=== PATIENT | male | born 1995 | race Two or more races ===

== ENCOUNTER 2021-07-09 00:21 | Emergency (ER) | payer BC ==
[~2021-07-09] VITALS: Ht 177.8 cm; Wt 89.5 kg
[2021-07-09] MEDS ORDERED: DOXY100C3 PO (01:12)
--- NOTE | 2021-07-09 01:12 | PHYS DOC ---
Past Medical History Past Medical History: No Pertinent History Past Surgical History: No Surgical History General Adult EDM: Chief Complaint: EARACHE/EAR PAIN HPI: HPI: 26-year-old male presents to the emergency department complaining of ear pain on the outside of both ears along with crusting and redness. He has used earplugs and earrings in the past. He notes some pus on the outside of his ear. He complains of some slight hearing difficulty on the right side but not the left side. The patient denies nausea, vomiting, fever, chills, chest pain, shortness of breath, abdominal pain, urinary symptoms, cough, recent trauma, or any other complaints. He notes that his symptoms of increased while he is wearing mask with ear loops Review of Systems: Review of Systems: ROS is otherwise negative except for what was mentioned in the HPI Heart Score: C/O Chest Pain: No Allergies: Allergies: Allergies Coded Allergies Type Severity Reaction Last Updated Verified No Known Drug Allergies 07/09/21 No Physical Exam: PE: General: No acute distress. HEENT: Bilateral tympanic membranes are within normal limits, external ear canals are within normal limits, on the auricle of the ear there is crusting and redness that appears chronic Neck: Supple, Full range of motion without tenderness. Respiratory: Airway intact, normal phonation, vocalizing. No signs of accessory muscle use or respiratory distress. Cardiovascular: Normal rate, Extremities appear well perfused. Musculoskeletal: Normal range of motion. No deformity. Ambulatory. Integumentary: No pallor, No jaundice. Neurologic: Alert, Oriented. Moves all extremities independently. Psychiatric: Cooperative Current Patient Data: Vital Signs: Vital Signs Date Time Temp Pulse Resp B/P (MAP) Pulse Ox O2 Delivery O2 Flow Rate FiO2 07/09/21 01:54 84 20 118/62 (80) 98 Room Air 07/09/21 01:24 76 20 133/61 (85) 97 Room Air 07/09/21 00:54 86 20 143/83 (103) 98 Room Air 07/09/21 00:45 98.8 82 20 146/87 (106) 98 Room Air 98.8 Course & Med Decision Making: Course & Med Decision Making Will prescribe doxycycline for superficial skin infection over the ear, there are no internal ear findings patient otherwise appears well. Departure Departure Impression: Primary Impression: Acute infection of both pinnae Disposition: 01 HOME / SELF CARE / HOMELESS Condition: STABLE Referrals: NON,STAFF (PCP) Patient Instructions: Cellulitis, [id number] Additional Instructions: You were seen for a skin infection called cellulitis. You should abhinav the area of redness when you get home. If your redness spreads past the marked area at 24 hours you should have it evaluated again. You do not have a focused area of infection called an abscess right now, but you could develop one. If so you will need to have it drained. You should return to the ED immediately if you develop worsening pain, fever, swelling, redness, drainage, any sign of abscess, or any other new or concerning symptoms. Take the entire course of antibiotics as prescribed. You have been given a prescription for doxycycline. This medicine is an antibiotic for cellulitis. Please take as prescribed for the full course of the prescription. Do not stop taking the medicine early if you feel better, as this could risk building antibiotic resistance and may put you at risk for a more harmful infection later. The most common side effect of antibiotics include nausea, vomiting, diarrhea and rash. Please come to be evaluated if you develop any symptoms that are concerning to you. One major adverse effect of antibiotics is the development of a diarrheal illness called c. diff colitis, if you develop an excessive amount of diarrhea or are concerned about this please return to the ER or consult a physician. Scripts Doxycycline Hyclate (DOXYCYCLINE HYCLATE) 100 Mg Capsule 1 CAP PO BID, #14 CAP Prov: AVERY OTERO DO 07/09/21 AVERY OTERO DO Jul 09, 2021 01:12
[2021-07-09 01:54] VITALS: BP 118/62
== END 2021-07-09 02:00 | disposition home or self-care (01) ==
LOC: ER 00:21
DX: H66.93 Otitis media, unspecified, bilateral (principal)
CPT/HCPCS: 99283